=== PATIENT | male | born 1950 | race Caucasian/White ===

== ENCOUNTER 2019-08-09 07:03 | Inpatient (IN) | payer OTHER ==
[~2019-08-09] VITALS: Ht 182.9 cm; Wt 106.6 kg
[2019-08-09] VITALS (11 sets, daily range): BP systolic 117–136; BP diastolic 67–88
[2019-08-09 07:38] LABS: HEMATOCRIT 43.4 % (42.0-52.0); HEMOGLOBIN 14.7 gm/dL (14.0-18.0); MCH 32.8 pg (26.0-34.0); MCHC 33.8 g/dL (28.0-37.0); MCV 97.1 fL (80.0-100.0); PLATELET COUNT 160 thou/uL (150-400); RBC 4.47 mil/uL (4.50-6.00)
[2019-08-09 07:47] LABS: CALCIUM 9.5 mg/dL (8.5-10.1); CREATININE 0.9 mg/dL (0.7-1.3); POTASSIUM 3.9 mmol/L (3.5-5.1)
[2019-08-09 07:51] LABS: APTT 27.5 Seconds (24.5-32.8); PROTIME 10.3 Seconds (9.3-11.4)
[2019-08-09 07:52] LABS: TOTAL BILIRUBIN 0.8 mg/dL (<0.1-1.0); TOTAL PROTEIN 7.9 g/dL (6.4-8.2)
[2019-08-09] MEDS ORDERED: NORVASC5 M1 PO (07:54)
[2019-08-09] MEDS ORDERED: ARICEPT10 M1 PO (07:59)
[2019-08-09] MEDS ORDERED: CARVEDILOL25 MG PO (07:59)
[2019-08-09] MEDS ORDERED: CRESTOR40 MG PO (08:01)
[2019-08-09] MEDS ORDERED: SPIRONOLACTONE25 M1 PO (08:01)
[2019-08-09] MEDS ORDERED: EFFEXOR XR75 MG PO (08:02)
[2019-08-09] MEDS ORDERED: DIOVAN 80 MG TA80 M1 PO (08:02)
[2019-08-09 08:39] LABS: ABSOLUTE NEUTROPHILS 3.5 thou/uL (1.4-8.2); PLATELET ESTIMATE NORMAL
--- NOTE | 2019-08-09 20:26 | NUR ---
PT. ARRIVED AT THE FLOOR AROUND 1415; AOX4; ABLE TO AMBULATE FROM STRETCHER TO BED; OFF OF BED REST BEFORE ARRIVING AT FLOOR; C/O NECK & BACK PAIN; PRN PAIN MEDICATION GIVEN BEFORE ARRIVAL AT THE FLOOR; DURING ASSESSMENT NO HEMATOMA OVER R. GROIN AREA; L. SIDE CHEST INSICION OOZING SOME BLOOD; NO HEMATOMA; EDUCATED ABOUT ICD PRECAUTIONS; CHECK CHARTING; ST. UNDERSTANDING; THROUGH THE AFTERNOON NO HEMATOMA; PT. HAD 2 EPISODES OF VTACH ON HEART MONITOR; CHARTED; PT. NOT SHOWING ANY S/S THROUGH THE EVENTS; ASSESSMENT CHARGED; FOLLOWING POC; PASSED ON REPORT;
--- NOTE | 2019-08-10 03:49 | NUR ---
ASSESSMENT DOCUMENTED.PT BEEN RESTING IN NO ACUTE DISTRESS.A/OX4.VSS.S/P PACEMAKER PLACEMENT ON LEFT CHEST.IMMOBILIZER IN PLACE.DENIES PAIN.ON MONITOR SR/SA WITH A-PACED RHYTHM.ON CPAP AT THIS TIME.PT DENIES ANY CONCERNS AT THIS TIME.POSSIBLE DISCHARGE TO HOME TODAY.
[2019-08-10 04:29] VITALS: BP 120/76
[2019-08-10] MEDS ORDERED: XARELTO20 MG PO (08:00)
[2019-08-10 08:46] VITALS: BP 143/87
[2019-08-10] MEDS ORDERED: SOTALOL 120 MG120 MG PO (10:03)
[2019-08-10 12:05] VITALS: BP 143/87
--- NOTE | 2019-08-10 19:24 | EKG ---
[address] [address] ELECTROCARDIOGRAM REPORT Name: JAKANURADHAMALDONADO Arora JR Room #: 212-[facility] IN M.R.#: [id number] Admission: 08/09/19 Attend Phys: Gene Burnett MD Discharge: 08/10/19 Date of : 54 Report #: [id number] THIS REPORT FOR: //name// [facility] Test Date: 2019-08-10 Test Time: 10:48:54 Pat Name: ANURADHA BENEDICT Department: Room: 212 P Gender: M Plans Examiner: Claribel HALL : 1950 Requested By: Mansi Campbell Order Number: [id number] MD: Cruzito Johnson Measurements Intervals [place] Rate: 61 P: UT: 285 QRS: -30 QRSD: 103 T: 52 QT: 461 QTc: 465 Interpretive Statements Atrial-paced complexes Prolonged UT interval Left axis deviation Anteroseptal infarct, age indeterminate Compared to ECG 02/11/2002 08:07:26 Atrial pacing is now present Electronically Signed On 08-10-2019 19:24:03 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
--- NOTE | 2019-08-30 14:08 | P ---
[facility] [place] [address] PROCEDURE REPORT Name: ANURADHA BENEDICT Maite CONNOLLY Room #: 212-[facility] IN ..#: [id number] Admission: 08/09/19 Attend Phys: Gene Burnett MD Discharge: 08/10/19 Date of : 54 Report #: [id number] THIS REPORT FOR: //name// CC: FAM unknown Gene Burnett PROCEDURES PERFORMED: 1. Comprehensive EP study, CPT code 21249. 2. EP with left atrial pacing and recording, CPT code 32528. 3. Program stimulation pacing after IV drug infusion, CPT code 57149. 4. Dual chamber ICD implantation, CPT code 52153. HISTORY OF PRESENT ILLNESS: The patient is a 69-year-old patient with history of an ischemic cardiomyopathy, who presented to Emergency Room in [place] with a wide complex tachycardia that did not respond to adenosine and required cardioversion. 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 There was concern that this could be either ischemic VT versus an idiopathic VT. He is here for EP study with possible ablation and possible ICD implantation. ANESTHESIA: The patient underwent MAC anesthesia with no anesthesia related complications. DESCRIPTION OF PROCEDURE: The patient underwent informed consent. We discussed the details of the procedure including the risks, which include but not limited to bleeding, vascular damage, cardiac perforation, stroke, [place] as well as possible pneumothorax. He understood these risks and is willing to proceed. The patient was prepped and draped in standard fashion. I placed 3 quadripolar catheters at the HRA, His and RV positions. A basic EP study was then performed. At baseline, the patient was in sinus rhythm with sinus cycle length of 690 milliseconds, NC interval 250 milliseconds, QRS duration 80 milliseconds, QT interval 390 milliseconds, AH interval 95 milliseconds, AH interval 47 milliseconds. Next, atrial burst pacing was performed and AV block was noted at 320 milliseconds, atrial ERP is noted at 230 milliseconds at [address] cycle length. Ventricular pacing was performed and there was no evidence of VA conduction. Ventricular ERP was noted at 220 milliseconds at a [address] cycle length. Next, the patient underwent ventricular stimulation. Using double ventricular extrastimuli, the patient went into sustained ventricular tachycardia. The patient was paced at 500/250/220 to induce his ventricular tachycardia. This ventricular tachycardia had a cycle length of 260 milliseconds, had a right bundle branch block morphology in lead V1 and had positive concordance. It was negative in leads II, III and aVF. This degenerated to VT #2, which was at 330 milliseconds isoelectric in V1 and negative concordance and also negative in leads II, III and aVF. This was sustained for over 30 seconds and at this time, I decided to perform termination with burst pacing. I attempted this twice and this was unsuccessful. The patient underwent 200 joule shock, which failed to convert [facility] [address] [place] [address] PROCEDURE REPORT Name: ANURADHA BENEDICT JR Room #: 212-P [facility] IN ..#: [id number] Admission: 08/09/19 Attend Phys: Gene Burnett MD Discharge: 08/10/19 Date of : 54 Report #: [id number] the ventricular tachycardia and he changed to another ventricular tachycardia that was right bundle branch block, positive concordance and positive in II, III and aVF. Another 200 joule cardioversion was performed, which resulted in shinto of sinus rhythm. Based on these findings, the patient clearly had multiple VT morphologies which are ischemic in nature. Isoproterenol infusion was initiated and additional testing was performed on isoproterenol, AV block was noted at 280 milliseconds. As such, catheters and sheaths were pulled and hemostasis was obtained and the patient was then prepped for ICD implantation. ICD implantation, the patient was prepped and draped in a sterile fashion. The patient received IV antibiotics prior to initiation of the procedure. The patient underwent a venogram showing patency of left axillary vein. Next, I injected lidocaine at the incision site. An incision was made below the level of the left clavicle. Incision was made and pocket was created over the prepectoral fascia. Next, access was obtained twice to left axillary vein with sheaths positioned using the modified Seldinger technique. Next, leads were positioned in the right ventricular apex and right atrial appendage both with adequate pacing and sensing thresholds. These leads were sutured to the prepectoral fascia and then the device was connected. The device was placed in the pocket. Pocket was irrigated with vancomycin and the pocket was closed in 2 layers using 2-0 for the deep layer, 3-0 for the mid layer and surgical glue was placed outer skin layer. The implanted device was a [employer] model #067326W, serial #[id number]. Atrial lead was a [employer] model #2088, serial #[id number] and the RV lead was a [employer] model #7120Q, 65 cm, serial #[id number]. The atrial lead demonstrated P-wave of 3.7 millivolts, pacing impedance of 440 ohms and the pacing threshold 0.75 volts at 0.5 milliseconds. The RV lead demonstrated R waves of greater than 12 millivolts, pacing impedance of 650 ohms, normal coil impedances and a pacing threshold of 0.5 volts at 0.5 milliseconds. The device was programmed to the DDDR 60-120 mode. VT monitor zone was set from 150-180 beats per minute. The VT zone was set at 180-220 beats per minute with 3 rounds of burst followed by 3 rounds of ramp followed by max output shocks. The VF zone was set at greater than 220 beats per minute with ATP while charging followed by max output shocks. CONCLUSIONS: 1. 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 2. Successful dual-chamber ICD implantation. <ELECTRONICALLY SIGNED> By: Gene Burnett MD 08/30/19 1408 1357 1602 Gene Burnett MD /nt
== END 2019-08-10 13:53 | disposition home or self-care (01) | DRG 227 ==
LOC: CATH 07:03 → 2N 14:54 → CATH 14:55 → ENTRNSPT 08-10 13:17 → EDTRNSPTSTS 08-10 13:34 → 2N 08-10 13:53
PROVIDERS: ADMIT Internal Medicine Cardiovascular Disease
DX: I47.2 Ventricular tachycardia (principal); I25.10 Atherosclerotic heart disease of native coronary artery without angina pectoris; I48.0 Paroxysmal atrial fibrillation; I10 Essential (primary) hypertension; E78.5 Hyperlipidemia, unspecified; E66.9 Obesity, unspecified; F32.9 Major depressive disorder, single episode, unspecified; I25.5 Ischemic cardiomyopathy; I25.2 Old myocardial infarction; Z68.31 Body mass index [BMI] 31.0-31.9, adult; Z79.899 Other long term (current) drug therapy